=== PATIENT | male | born 1965 | race Hispanic/Latino ===

== ENCOUNTER 2019-01-06 08:07 | Day surgery (SDC) | payer OTHER ==
[2019-01-05 15:20] VITALS: BP 139/82
[2019-01-05 15:29] LABS: BASOPHILS % (AUTO) 0.6 % (0.0-5.0); EOSINOPHILS % (AUTO) 0.8 % (0.0-8.0); HEMATOCRIT 44.6 % (42-54); LYMPHOCYTES % (AUTO) 28.1 % (21.0-51.0); MEAN CORPUSCULAR HEMOGLOBIN 32.1 pg (27.0-33.0); MEAN CORPUSCULAR HGB CONC 34.7 g/dL (32.0-36.0); MEAN CORPUSCULAR VOLUME 92.7 fL (79-99); MONOCYTES % (AUTO) 8.7 % (3.0-13.0); NEUTROPHILS % (AUTO) 61.8 % (40.0-77.0); PLATELET COUNT (AUTO) 190 K/uL (130-400); RED BLOOD CELL COUNT(AUTO) 4.81 MIL/uL (4.50-6.20); RED CELL DISTRIBUTION WIDTH 12.9 % (11.0-15.5); WHITE BLOOD COUNT (AUTO) 6.6 K/uL (4.8-10.8)
[2019-01-05 15:40] LABS: POTASSIUM 3.7 mmol/L (3.5-5.1)
[2019-01-06] VITALS (18 sets, daily range): BP systolic 101–148; BP diastolic 59–89
[~2019-01-06] VITALS: Ht 176.5 cm; Wt 121.7 kg
[~2019-01-06 08:07] MED LIST: BUSP7.5T7 PO; CEFAZOLIN 3GM /D5W 100ML 100 ML IV PRN; HYDR25TA PO; IBUP-2077 PO; LISI-613 PO; MULT-40 PO; OMEP20TA25 PO; TRAM50TA4 PO
[2019-01-06] MEDS ORDERED: LACTATED RINGERS 1000ML 1,000 ML IV ONE (08:52)
[2019-01-06] MEDS ORDERED: MIDAZOLAM HCL 1 MG/ML 2ML VIAL ONE (10:51)
[2019-01-06] MEDS ORDERED: PROPOFOL 10 MG/ML 20ML VIAL IV ONE (10:54)
[2019-01-06] MEDS ORDERED: ROCURONIUM 10MG/1ML SYR 10 MG/ML ML ONE (10:57)
[2019-01-06] MEDS ORDERED: DEXAMETHASONE SOD PHOSPHATE 10MG/ML 1ML VIAL ONE (11:11)
[2019-01-06] MEDS ORDERED: CEFAZOLIN SODIUM 1 GM VIAL ONE (11:18)
[2019-01-06] MEDS ORDERED: KETOROLAC TROMETHAMINE 30MG/ML ONE (11:33)
[2019-01-06] MEDS ORDERED: ONDANSETRON HCL 4 MG/2 ML VIAL ONE (11:33)
[2019-01-06] MEDS ORDERED: GLYCOPYRROLATE 1 MG/5 ML SYRINGE ONE (11:34)
[2019-01-06] MEDS ORDERED: NEOSTIGMINE 5MG/5ML SYR IV ONE (11:34)
[2019-01-06] MEDS ORDERED: FENTANYL CITRATE PF 50 MCG/1 ML 2ML VIAL ONE (11:43)
[2019-01-06] MEDS ORDERED: CEPH500B PO (12:15)
[2019-01-06] MEDS ORDERED: TYL3 PO (12:15)
--- NOTE | 2019-01-06 12:50 | NUR ---
PATIENT ARRIVED PATIENT BROUGHT FROM PACU BY SKYLAR ELDER. PATIENT AWAKE AND ORIENTED, PATIENT DROWSY. PATIENT DENIES ANY PAIN. PEDAL PULSES STRONG BILATERALLY. NICK WRAP TO RIGHT KNEE, NO DRAINAGE,NO BRUISING,NO SWELLING NOTED. CAPILLARY REFILL <3 SECS TO RIGHT TOES. PATIENT'S BROUGHT INTO PATIENT'S ROOM AND SITTING AT BEDSIDE.
--- NOTE | 2019-01-06 14:30 | NUR ---
DISCHARGED DISCHARGE INSTRUCTIONS EXPLAINED TO PATIENT'S , FOLLOW UP APPOINTMENT PROVIDED. INCISION CARE INSTRUCTIONS EXPLAINED. PATIENT'S VERBALIZED UNDERSTANDING. ALL QUESTIONS/CONCERNS ADDRESSED. CRUTCHES PROVIDED TO PATIENT AND INSTRUCTED ON USE OF CRUTCHES. PATIENT AND SPOUSE VERBALIZED UNDERSTANDING. PRESCRIPTIONS PROVIDED TO PATIENT'S SPOUSE. PATIENT TAKEN TO PRIVATE VEHICLE VIA WHEELCHAIR AND ASSISTED INTO VEHICLE.
== END 2019-01-06 14:30 ==
LOC: DAH 08:07
PROVIDERS: ATTEND Orthopaedic Surgery
DX: M23.221 Derangement of posterior horn of medial meniscus due to old tear or injury, right knee (principal); M94.261 Chondromalacia, right knee; G47.30 Sleep apnea, unspecified; I10 Essential (primary) hypertension; I25.10 Atherosclerotic heart disease of native coronary artery without angina pectoris; K21.9 Gastro-esophageal reflux disease without esophagitis; Z98.890 Other specified postprocedural states; Z99.89 Dependence on other enabling machines and devices; G89.29 Other chronic pain
CPT/HCPCS: 29881; 36415; 80048; 85025; A4606; A4649 ×2; A4930; A6223; J0690; J1100; J1885; J2250; J2405; J2704; J2710; J3490; J7120; J3010

== ENCOUNTER 2024-12-01 05:56 | Day surgery (SDC) | payer OTHER ==
[2024-11-29 13:08] LABS: IMMATURE GRANULOCYTE ABSOLUTE 0.01 K/uL (0-1); NUCLEATED RED BLOOD CELLS 0.0 % (0.0-0.19); PLATELET COUNT (AUTO) 210 K/uL (130-400); RED BLOOD CELL COUNT(AUTO) 5.17 MIL/uL (4.50-6.20); RED CELL DISTRIBUTION WIDTH 12.8 % (11.0-15.5); WHITE BLOOD COUNT (AUTO) 5.5 K/uL (4.8-10.8)
[2024-11-29 13:17] LABS: CREATININE 0.9 mg/dL (0.5-1.3); GLOMERULAR FILTR. RATE CALC 100.0 mL/min (>90); GLUCOSE,RANDOM 98.0 mg/dL (70-105); SODIUM SERUM 142.0 mmol/L (136-145); UREA NITROGEN, BLOOD 16.0 mg/dL (7-18)
[2024-11-29 13:21] LABS: INR 1.06 (0.85-1.15)
[2024-11-29 13:43] VITALS: BP 121/77; PULSE 61; RESP 16; TEMP 98
[~2024-12-01] VITALS: Ht 177.8 cm; Wt 122.5 kg
[2024-12-01] VITALS (19 sets, daily range): BP systolic 113–161; BP diastolic 75–98; PULSE 55–84; RESP 11–20; TEMP 97.3–97.8
[~2024-12-01 05:56] MED LIST changes: +ACET-2743 PO; -BUSP7.5T7 PO; -CEFAZOLIN 3GM /D5W 100ML 100 ML IV PRN; +CETI10TA57 PO; +HYDR12.54 PO; -HYDR25TA PO; -LISI-613 PO; +LISI10TA24 PO; -MULT-40 PO; +MVI PO; +OMEP20TA20 PO; -OMEP20TA25 PO; -TRAM50TA4 PO
[2024-12-01] MEDS ORDERED: LIDOCAINE PF 100MG/5ML (2%) SYRINGE 5ML ONE (06:37)
[2024-12-01] MEDS ORDERED: GLYCOPYRROLATE 0.2 MG/ML 5 ML VIAL ONE (06:38)
[2024-12-01] MEDS ORDERED: SUCCINYLCHOLINE CHLORIDE 20 MG/ML 10 ML VIAL ONE (06:38)
[2024-12-01] MEDS ORDERED: NEOSTIGMINE METHYLSULFATE 1MG/ML IV ONE (06:38)
[2024-12-01] MEDS ORDERED: MIDAZOLAM HCL 1 MG/ML 2ML VIAL ONE (06:39)
[2024-12-01] MEDS ORDERED: ALBUMIN (HUMAN) 5% 250 ML IV ONE (06:41)
[2024-12-01] MEDS: LACTATED RINGERS 1000ML 1,000 ML IV ONE (06:42)
[2024-12-01] MEDS ORDERED: FAMOTIDINE 20MG VIAL IV ONE (07:18)
[2024-12-01] MEDS ORDERED: SUGAMMADEX SODIUM 200 MG/2 ML VIAL IV ONE (07:25)
[2024-12-01] MEDS ORDERED: HYDR-4060 PO (08:13)
[2024-12-01] MEDS ORDERED: DOCU-116 PO (08:13)
[2024-12-01] MEDS ORDERED: CYCL-309 PO (08:13)
--- NOTE | 2024-12-01 11:13 | OP ---
Operative Note: DATE OF PROCEDURE: 12/01/24 SURGEON: KESHA VALENCIA MD LECTURER IN COMPUTER SCIENCE: Melody Brown ANESTHESIA: General and interscalene block ANESTHESIOLOGIST/STATISTICS PROFESSOR: Stefan Angeles PREOPERATIVE DIAGNOSIS: Left shoulder biceps tendinitis, rotator cuff tear, subacromial impingement, acromioclavicular joint osteoarthritis POSTOPERATIVE DIAGNOSIS: Left shoulder rotator cuff tear, subacromial impingement, acromioclavicular joint osteoarthritis PROCEDURE: Left shoulder arthroscopic rotator cuff repair with subacromial decompression and distal clavicle excision ESTIMATED BLOOD LOSS: 20 cc FINDINGS: See below INDICATIONS: 39-year-old male with a history of left shoulder pain. They were failing conservative management and found on MRI to have retracted rotator cuff tear with clinical findings consistent with biceps tendinitis, subacromial impingement, and symptomatic acromioclavicular arthritis.. After discussion of the risk, benefits, and alternatives, the patient voluntarily agreed to undergo the aforementioned procedure. DESCRIPTION OF PROCEDURE: Patient was properly identified in the preoperative holding area. Surgical site marking was verified and surgery consent reviewed. The patient was then taken to the operating room and placed in supine position on the OR table. After induction of general anesthesia, preoperative antibiotics were given, all bony prominences were well-padded as the patient was transitioned into beachchair position. The left upper extremity was then prepped and draped in usual sterile fashion. Surgical timeout was done verifying correct surgery, side, site, and location to be performed. We then began the procedure by using an 18-gauge spinal needle to inject the shoulder joint with normal saline to distend the joint capsule. A posterior lateral portal was established using 11 blade and we inserted our arthroscope through this portal. We established an anterior portal using needle localization under direct visualization and placed a working cannula through t his portal. On inserting the arthroscope into the joint we noted there to be hypertrophic synovial tissue was inflamed overlying most structures. The long head of the biceps appeared intact with intact anchor to labrum. The leading edge of the supraspinatus tendon had retracted back to the level of the glenohumeral joint. Looking over the anterior and top of the joint we noted there was no rotator cuff tissue attached in these regions. As we looked further laterally we noted the this was a large tear extending back into the infraspinatus tendon for we noted attached insertion of the inferior portion of the infraspinatus. The anterior labrum was intact. As we looked inferiorly the inferior labrum was intact. There were some diffuse grade 2 cartilage changes on the humeral head and grade 3 on the glenoid. We then made an anterior portal using spinal needle for localization and inserted the ArthroCare Wand. We debrided some of the synovial tissue inside the joint as well as the leading edge of the rotator cuff tendon of the tear. We repositioned the arthroscope in the subacromial space and made an anterolateral portal through which we placed a working cannula. Here we performed the bursectomy using a combination of shaver and cautery device. We then checked the rotator cuff for elasticity using the grasper noted that it could be reduced back to its insertion site. We then performed a SpeedBridge repair of the anterior portion of the supraspinatus through two medial stab incisions. Once this repair was complete we noted that the posterior portion was still retracted medially. We inserted a another suture anchor posterior to our SpeedBridge construct and repaired the posterior portion of the tendon with a single FiberTape placed in mattress fashion. We used the extra suture provided within the SwiveLock anchor to bring down a posterior dog-ear. We then resected approximately eight mm of the distal clavicle. We completed the subacromial decompression and smoothed the undersurface of the acromion using the bur to remove any inferiorly projecting osteophytes and approximately 2 mm of bone. We checked on the status of our tissue repair and then removed all the instruments from the joint. We then removed as much of the arthroscopic fluid as possible. We expressed some the remaining fluid from the surrounding soft tissues. 3-0 nylon was then used to close the skin portals. Sterile soft dressing was applied. Patient was then placed into a shoulder immobilizer, awakened from anesthesia, and taken the recovery room in stable condition. KESHA VALENCIA MD Dec 01, 2024 11:13
--- NOTE | 2024-12-01 12:05 | NUR ---
dressing: bulky dressing to left shoulder dry/intact. immobilizer in place.
--- NOTE | 2024-12-01 12:10 | NUR ---
URINARY: VOIDED 350 CC CLEAR YELLOW COLOR URINE PER URINAL
--- NOTE | 2024-12-01 13:10 | NUR ---
URINARY: VOIDED 175CC CLEAR YELLOW COLOR URINE PER URINAL WITHOUT DIFFICULTY.
--- NOTE | 2024-12-01 13:25 | NUR ---
DRESSING: DRESSING TO LEFT SHOULDER DRY/INTACT WITH NO ACTIVE BLEEDING PRESENT. ARM SLING IN PLACE TO LEFT ARM.
== END 2024-12-01 13:25 | disposition home or self-care (01) ==
LOC: DAH 05:56
PROVIDERS: ATTEND Student in an Organized Health Care Education/Training Program
DX: M75.122 Complete rotator cuff tear or rupture of left shoulder, not specified as traumatic (principal); M75.42 Impingement syndrome of left shoulder; M75.22 Bicipital tendinitis, left shoulder; M19.012 Primary osteoarthritis, left shoulder; I10 Essential (primary) hypertension; K21.9 Gastro-esophageal reflux disease without esophagitis; Z79.01 Long term (current) use of anticoagulants; Z82.49 Family history of ischemic heart disease and other diseases of the circulatory system; Z79.899 Other long term (current) drug therapy; Z98.890 Other specified postprocedural states
CPT/HCPCS: 64415; 29824; 29826; 29827; 80048; 85025; 85610; 85730; 36415; C1713 ×3; A4663; J7030; J7120 ×2; A4565; P9045; J3490 ×4; J3010 ×2; J1100; J0330; J2003; J0169 ×3; J2250; J2704 ×2; J2405; J2710; J2795; J0690; A6223; A4930; A4649; A4215; A4223; A4222; A4221; A4450